=== PATIENT | male | born 1985 | race Caucasian/White ===

== ENCOUNTER 2021-01-26 16:16 | Emergency (ER) | payer OTHER, SELFPAY ==
[~2021-01-26] VITALS: Ht 177.8 cm; Wt 97.7 kg
--- NOTE | 2021-01-26 17:19 | NUR ---
TO ROOM FROM LOBBY. NAD.
--- NOTE | 2021-01-26 17:25 | NUR ---
PT TO ROOM FROM LOBBY, CHANGED INTO GOWN. MONITORS IN PLACE. CALL LIGHT WITHIN REACH. NADN/VSS
[2021-01-26] MEDS ORDERED: SODIUM CHLORIDE 0.9% 1,000ML IVBOLUS ONE (18:00)
[2021-01-26] MEDS ORDERED: SODIUM CHLORIDE FLUSH 10ML SYR IVF ONE (18:00)
[2021-01-26 18:17] LABS: BASOPHILS % (AUTO) 1 % (0-1); EOSINOPHILS % (AUTO) 3 % (1-7); LYMPHOCYTES % (AUTO) 28 % (22-44); MEAN CORPUSCULAR HEMOGLOBIN 31.2 pg (27.5-34.5); MEAN CORPUSCULAR HGB CONC 35.3 g/dL (33.2-36.2); MEAN PLATELET VOLUME 8.7 fL (7.4-10.4); MONOCYTES % (AUTO) 8 % (2-9); NEUTROPHILS % (AUTO) 61 % (42-75); PLATELET COUNT 257 x10^3/uL (130-400); RED CELL DISTRIBUTION WIDTH 13.4 % (9.4-14.8)
--- NOTE | 2021-01-26 18:39 | NUR ---
PT RESTING ON KANE LIN/SHY. CALL LIGHT WITHIN REACH. IVF INFUSING. NO NEEDS AT THIS TIME
--- NOTE | 2021-01-26 18:50 | NUR ---
REPORT TO JESSICA THOMPSON
--- NOTE | 2021-01-26 18:51 | NUR ---
REPORT RECEIVED FROM BLAS RN
[2021-01-26 19:02] LABS: ANION GAP 5 mmol/L (5-15); CALCIUM 8.4 mg/dL (8.5-10.1); CHLORIDE 110 mmol/L (98-107)
[2021-01-26 19:03] LABS: ALANINE AMINOTRANSFERASE 44 U/L (12-78); ALKALINE PHOSPHATASE 72 U/L (45-117); BILIRUBIN,TOTAL 0.5 mg/dL (0.2-1.0); CREATININE 0.89 mg/dL (0.7-1.3); TOTAL PROTEIN 7.6 g/dL (6.4-8.2)
[2021-01-26 19:04] LABS: FREE T4 (FREE THYROXINE) 1.15 ng/dL (0.76-1.46); TROPONIN I < 0.015 ng/mL (0.000-0.045)
--- NOTE | 2021-01-26 20:00 | NUR ---
PT RESTING ON GURNEY, DENIES NEEDS AT THIS TIME.
--- NOTE | 2021-01-26 21:50 | NUR ---
ERP AT BEDSIDE
[2021-01-26 21:55] VITALS: BP 113/61
--- NOTE | 2021-01-26 22:13 | NUR ---
Patient given discharge instructions and they have confirmed that they understand the instructions. Patient ambulatory with steady gait.
== END 2021-01-26 22:15 | disposition home or self-care (01) ==
LOC: ED 21:45
DX: R00.0 Tachycardia, unspecified (principal); R42 Dizziness and giddiness; F17.200 Nicotine dependence, unspecified, uncomplicated
CPT/HCPCS: 36415; 71045; 80053; 84439; 84443; 84484; 85025; 85379; 93005; 96360; 96361; 99285; J7030